=== PATIENT | female | born 1960 | race Caucasian/White ===

== ENCOUNTER 2018-09-04 20:23 | Emergency (ER) | payer BC ==
[~2018-09-04 20:23] MED LIST: ASC500 PO; ASP325 PO; CALCIUM PO; DEXL60CA6 PO; ESOM40CA42 PO; FISH OIL1 CAP PO; GLUC500T13 PO; IBU800 PO; LEVO112T43 PO; LIO25 PO; MULT-820 PO; NIA500 PO; OMEP-218 PO; S-AD200T5 PO; tylenol#3 PO
--- NOTE | 2018-09-04 20:27 | ER Report ---
History and Physical Time Seen By MD: 20:26 HPI/ROS CHIEF COMPLAINT: Left-sided chest pain, numbness radiating into the left face, left arm HISTORY OF PRESENT ILLNESS: Patient is a 58-year-old female with prior history of cardiac stent placement here with intermittent stuttering left-sided chest pain with numbness radiating to the left face, left arm which started approximately 7:00 this morning. Patient did take her aspirin at home. Patient does report a history of hypertension, family history of early heart attacks. Patient is hemodynamically stable, afebrile at time of evaluation. Denies shortness breath, diaphoresis, abdominal pain, fevers or chills. REVIEW OF SYSTEMS: Constitutional: No fever, no chills. Eyes: No discharge. ENT: No sore throat. Cardiovascular: + Left sided chest pain with numbness radiating to the left side of the face, left upper extremity, no palpitations. Respiratory: No cough, no shortness of breath. Gastrointestinal: No abdominal pain, no vomiting. Genitourinary: No hematuria. Musculoskeletal: No back pain. Skin: No rashes. Neurological: No headache. Allergies: Coded Allergies: No Known Drug Allergies (Verified , 09/04/18) Home Meds Active Scripts Tramadol Hcl (TRAMADOL HCL) 50 Mg Tablet, 50 MG PO Q6H PRN for PAIN, #12 TAB 0 Refills Prov:YADI MOSS DO 09/04/18 Reported Medications Estrogen,Con/M-Progest Acet (PREMPRO 0.45-1.5 MG TABLET) 1 Each Tablet, 1 EACH PO 09/04/18 Nortriptyline Hcl (NORTRIPTYLINE HCL) 25 Mg Cap, 25 MG PO HS, CAP 09/04/18 Valacyclovir Hcl (VALACYCLOVIR) 500 Mg Tablet, 500 MG PO 09/04/18 Losartan Potassium (LOSARTAN POTASSIUM) 50 Mg Tablet, 50 MG PO QDAY 09/04/18 Levothyroxine Sodium (LEVOTHYROXINE SODIUM) 100 Mcg Tablet, 125 MCG PO QDAY, TAB 09/04/18 Discontinued Reported Medications Dexlansoprazole (Dexilant) 60 Mg Colin., 60 MG PO DAILY, 0 Refills 05/24/11 Levothyroxine Sodium (Synthroid) 112 Mcg Tablet, 112 MCG PO QDAY, 0 Refills 05/24/11 Hx Smoking: Yes Hx Substance Use Disorder: No Hx Alcohol Use: No Constitutional Vital Sign - Last 24 Hours 09/04/18 09/04/18 09/04/18 09/04/18 20:23 20:26 20:26 20:30 Temp 98.3 Pulse ??? 85 Resp 18 B/P (MAP) 179/112 (134) 179/112 147/92 (110) Pulse Ox 92 O2 Delivery Room Air 09/04/18 09/04/18 09/04/18 09/04/18 20:33 20:40 20:43 20:50 Pulse 83 77 Resp 25 24 B/P (MAP) 147/94 (111) 141/92 (108) Pulse Ox 96 95 09/04/18 09/04/18 09/04/18 09/04/18 20:53 21:00 21:03 21:13 Pulse 74 72 76 Resp 14 19 17 B/P (MAP) 140/97 (111) Pulse Ox 93 94 93 09/04/18 09/04/18 09/04/18 09/04/18 21:15 21:23 21:30 21:33 Pulse 77 75 Resp 13 12 B/P (MAP) 147/91 (109) 138/93 (108) Pulse Ox 94 94 09/04/18 21:40 B/P (MAP) 146/107 (120) Physical Exam General Appearance: The patient is alert, has no immediate need for airway protection and no signs of toxicity. No acute distress Eyes: Pupils equal and round no pallor or injection. ENT, Mouth: Mucous membranes are moist. Respiratory: There are no retractions, lungs are clear to auscultation. Cardiovascular: Regular rate and rhythm. Gastrointestinal: Abdomen is soft and non tender, no masses, bowel sounds normal. Neurological: No focal neurological deficits Skin: Warm and dry, no rashes. Musculoskeletal: Neck is supple non tender. Extremities are nontender, nonswollen and have full range of motion. DIFFERENTIAL DIAGNOSIS: After history and physical exam differential diagnosis was considered for chest pain including but not limited to myocardial ischemia, pericarditis pulmonary embolus, chest wall pain, pleural inflammation and p ulmonary infectious causes. Medical Decision Making Data Points Result Diagram: 09/04/18203509/04/182035 Laboratory Hematology Test 09/04/18 20:36 Red Blood Count 4.53 M/uL (4.17-5.56) Mean Corpuscular Volume 93.1 fL (80.0-96.0) Mean Corpuscular Hemoglobin 31.4 pg (26.0-33.0) Mean Corpuscular Hemoglobin Concent 33.7 g/dL (32.0-36.0) Red Cell Distribution Width 14.1 % (11.5-14.5) Mean Platelet Volume 7.4 fL (7.2-11.1) Neutrophils (%) (Auto) 46.2 % (39.4-72.5) Lymphocytes (%) (Auto) 40.3 % (17.6-49.6) Monocytes (%) (Auto) 8.4 % (4.1-12.4) Eosinophils (%) (Auto) 2.7 % (0.4-6.7) Basophils (%) (Auto) 2.4 % (0.3-1.4) Nucleated RBC Relative Count (auto) 0.1 /100WBC Neutrophils # (Auto) 3.5 K/uL (2.0-7.4) Lymphocytes # (Auto) 3.1 K/uL (1.3-3.6) Monocytes # (Auto) 0.6 K/uL (0.3-1.0) Eosinophils # (Auto) 0.2 K/uL (0.0-0.5) Basophils # (Auto) 0.2 K/uL (0.0-0.1) Nucleated RBC Absolute Count (auto) 0.01 K/uL Prothrombin Time 12.9 seconds (12.0-14.4) Prothromb Time International Ratio 0.97 Activated Partial Thromboplast Time 29 seconds (23-35) D-Dimer Quantitative (PE/DVT) < 0.27 ug/ml (0-0.50) Sodium Level 136 mmol/L (137-145) Potassium Level 3.6 mmol/L (3.5-5.0) Chloride Level 103 mmol/L (98-107) Carbon Dioxide Level 25 mmol/L (22-31) Blood Urea Nitrogen 12 mg/dl (7-18) Creatinine 0.70 mg/dl (0.52-1.04) Glomerular Filtration Rate Calc > 60.0 Random Glucose 114 mg/dl (75-110) Calcium Level 9.7 mg/dl (8.4-10.2) Total Bilirubin 0.1 mg/dl (0.2-1.3) Aspartate Amino Transf (AST/SGOT) 40 U/L (0-35) Alanine Aminotransferase (ALT/SGPT) 29 U/L (0-56) Alkaline Phosphatase 62 U/L (0-126) Troponin I < 0.012 ng/ml B-Type Natriuretic Peptide 12 pg/ml (0-100) Total Protein 7.3 g/dl (6.3-8.2) Albumin 4.4 g/dl (3.5-5.0) Chemistry Test 09/04/18 20:36 White Blood Count 7.6 k/uL (4.5-11.0) Red Blood Count 4.53 M/uL (4.17-5.56) Hemoglobin 14.2 g/dL (12.0-16.0) Hematocrit 42.2 % (34.0-47.0) Mean Corpuscular Volume 93.1 fL (80.0-96.0) Mean Corpuscular Hemoglobin 31.4 pg (26.0-33.0) Mean Corpuscular Hemoglobin Concent 33.7 g/dL (32.0-36.0) Red Cell Distribution Width 14.1 % (11.5-14.5) Platelet Count 281 K/uL (150-450) Mean Platelet Volume 7.4 fL (7.2-11.1) Neutrophils (%) (Auto) 46.2 % (39.4-72.5) Lymphocytes (%) (Auto) 40.3 % (17.6-49.6) Monocytes (%) (Auto) 8.4 % (4.1-12.4) Eosinophils (%) (Auto) 2.7 % (0.4-6.7) Basophils (%) (Auto) 2.4 % (0.3-1.4) Nucleated RBC Relative Count (auto) 0.1 /100WBC Neutrophils # (Auto) 3.5 K/uL (2.0-7.4) Lymphocytes # (Auto) 3.1 K/uL (1.3-3.6) Monocytes # (Auto) 0.6 K/uL (0.3-1.0) Eosinophils # (Auto) 0.2 K/uL (0.0-0.5) Basophils # (Auto) 0.2 K/uL (0.0-0.1) Nucleated RBC Absolute Count (auto) 0.01 K/uL Prothrombin Time 12.9 seconds (12.0-14.4) Prothromb Time International Ratio 0.97 Activated Partial Thromboplast Time 29 seconds (23-35) D-Dimer Quantitative (PE/DVT) < 0.27 ug/ml (0-0.50) Glomerular Filtration Rate Calc > 60.0 Calcium Level 9.7 mg/dl (8.4-10.2) Total Bilirubin 0.1 mg/dl (0.2-1.3) Aspartate Amino Transf (AST/SGOT) 40 U/L (0-35) Alanine Aminotransferase (ALT/SGPT) 29 U/L (0-56) Alkaline Phosphatase 62 U/L (0-126) Troponin I < 0.012 ng/ml B-Type Natriuretic Peptide 12 pg/ml (0-100) Total Protein 7.3 g/dl (6.3-8.2) Albumin 4.4 g/dl (3.5-5.0) Coagulation Test 09/04/18 20:36 Prothrombin Time 12.9 seconds Prothromb Time International Ratio 0.97 Activated Partial Thromboplast Time 29 seconds D-Dimer Quantitative (PE/DVT) < 0.27 ug/ml EKG/Imaging EKG Interpretation PATIENT NAME: DELTA MACDONALD : [id number] MR: [id number] V: [id number] EXAM DATE: ORDERING PHYSICIAN: YADI MOSS TECHNOLOGIST: PANTIER Test Reason : CP Blood Pressure : / mmHG Vent. Rate : 076 BPM Atrial Rate : 076 BPM P-R Int : 150 ms QRS Dur : 098 ms QT Int : 404 ms P-R-T Axes : 065 -74 060 degrees QTc Int : 454 ms Normal sinus rhythm Left anterior fascicular block Abnormal ECG When compared with ECG of 20-APR-2013 15:54, No significant change was found Referred By: Confirmed By: Imaging PATIENT NAME: Delta Macdonald : 1960 MR: [id number] V: [id number] EXAM DATE: ORDERING PHYSICIAN: YADI MOSS TECHNOLOGIST: [place] [facility] [place] : 1960 Visit/Account:[id number] Date of Sevice: 09/04/2018 EXAMINATION: Portable chest radiograph single view at 8:52 PM HISTORY: Chest pain. COMPARISON: 04/22/2011. FINDINGS: A single portable AP view of the chest is obtained. Lines/tubes: None. Lungs/pleura: No focal consolidation or pleural effusion. Pulmonary vascularity is within normal limits. No evidence of pneumothorax. Heart: Normal heart size. Mediastinum: Stable mediastinal contours. Bony structures/body wall: Thoracolumbar scoliosis. IMPRESSION: No radiographic evidence of acute cardiopulmonary disease. ED Course/Re-evaluation ED Course Patient is a 58-year-old female here with complaints of left-sided chest pain, numbness radiating into the left face and left arm. Patient reports having prior history of heart attack at which time a stent was placed after she was transferred to [facility]. Patient reports that her symptoms started proximal 7:00 this morning and have been intermittent. Patient reports having symptoms for accumulative several hours. Patient is hemodynamically stable at time of evaluation, afebrile. Troponin, d-dimer were found to be negative. There is no leukocytosis, chest x-ray was clear. Patient was given Toradol, fentanyl for symptomatic treatment. Recommend close PCP follow-up. Return precautions provided. Patient was given a prescription for tramadol for breakthrough pain control. I discussed with the patient the possible need for an echo or a stress test if indicated. Patient will follow up with her primary care physician tomorrow in order to discuss the next steps. Patient was hemodynamically stable at time of discharge. Decision to Disposition Date: Sep 04, 2018 Decision to Disposition Time: 22:04 Depart Departure Latest Vital Signs Vital Signs Date Time Temp Pulse Resp B/P (MAP) Pulse Ox O2 Delivery O2 Flow Rate FiO2 09/04/18 21:40 146/107 (120) 09/04/18 21:33 75 12 94 09/04/18 20:26 98.3 Room Air Impression: Primary Impression: Chest pain Condition: Improved Disposition: HOME OR SELF-CARE Referrals: YUDELKA HER (PCP) New Scripts Tramadol Hcl (TRAMADOL HCL) 50 Mg Tablet 50 MG PO Q6H PRN for PAIN, #12 TAB 0 Refills Prov: YADI MOSS DO 09/04/18 Patient Instructions: Chest Pain (ED) Additional Instructions: Please follow up closely with your family doctor in order to discuss possible need for further testing such as stress test or echo. Today your troponin and d- dimer were found to be negative. Your chest x-ray showed no signs of pneumonia, fluid on the lungs or collapsed lung. Please drink plenty of water, return immediately if you develop chest pain recurrence, fevers, increasing shortness of breath. You may take Tylenol or naproxen as needed for primary pain control. You may take 1 tramadol every 6-8 hours as needed for breakthrough pain control. YADI MOSS DO Sep 04, 2018 20:27
[2018-09-04] MEDS ORDERED: NS(*) 0.9% 1000 ML BAG 1,000 ML IV ONE (20:38)
[2018-09-04] MEDS ORDERED: KETOROLAC 30 MG/ML VIAL IVP ONE (20:40)
[2018-09-04] MEDS ORDERED: LEVO-3 PO (20:44)
[2018-09-04] MEDS ORDERED: LOSA50TA80 PO (20:46)
[2018-09-04] MEDS ORDERED: NOR25 PO (20:46)
[2018-09-04] MEDS ORDERED: ESTR-26 PO (20:46)
[2018-09-04] MEDS ORDERED: VALA500T63 PO (20:46)
[2018-09-04 20:55] LABS: PLATELET COUNT, AUTOMATED 281 K/uL (150-450)
--- NOTE | 2018-09-04 21:16 | EKG ---
[place] [facility] [place] NAME: DELTA ALEXANDER : [id number] MR: [id number] V: [id number] EXAM DATE: ORDERING PHYSICIAN: YADI MOSS TECHNOLOGIST: EMERITA Sebastian Reason : CP Blood Pressure : / mmHG Vent. Rate : 076 BPM Atrial Rate : 076 BPM P-R Int : 150 ms QRS Dur : 098 ms QT Int : 404 ms P-R-T Axes : 065 -74 060 degrees QTc Int : 454 ms Sinus rhythm Possible left atrial enlargement Left axis Nonspecific interventricular conduction delay Abnormal ECG When compared with ECG of 20-APR-2013 15:54, No significant change was found Confirmed by ISAIAS STEWART ([id number]) on 09/05/2018 6:08:44 AM Referred By: Confirmed By:ISAIAS STEWART
[2018-09-04 21:29] LABS: INR 0.97
--- NOTE | 2018-09-04 21:32 | RADIOLOGY IMAGING REPORT ---
FACILITY: [facility] PATIENT NAME: Stephanie Macdonald : 1960 MR: [id number] V: [id number] EXAM DATE: ORDERING PHYSICIAN: YADI MOSS TECHNOLOGIST: Location: [facility] - [place], [place] Patient: Stephanie Macdonald : 1960 Visit/Account:[id number] Date of Sevice: 09/04/2018 EXAMINATION: Portable chest radiograph single view at 8:52 PM HISTORY: Chest pain. COMPARISON: 04/22/2011. FINDINGS: A single portable AP view of the chest is obtained. Lines/tubes: None. Lungs/pleura: No focal consolidation or pleural effusion. Pulmonary vascularity is within normal lyman its. No evidence of pneumothorax. Heart: Normal heart size. Mediastinum: Stable mediastinal contours. Bony structures/body wall: Thoracolumbar scoliosis. IMPRESSION: No radiographic evidence of acute cardiopulmonary disease. Report Dictated By: Remberto Savage MD at 09/04/2018 9:26 PM Report E-Signed By: Remberto Savage MD at 09/04/2018 9:29 PM [id number]
[2018-09-04 21:40] VITALS: BP 146/107
[2018-09-04] MEDS ORDERED: fentaNYL CITR 100 MCG/2 ML AMP IVP ONE (21:50)
[2018-09-04] MEDS ORDERED: TRAM-420 PO (22:06)
[2018-09-04] MEDS ORDERED: traMADol 50 MG TAB TH 2 TAB/BOTTLE PO ONE (22:10)
== END 2018-09-04 22:25 | disposition home or self-care (01) ==
LOC: ER 20:46
DX: R07.9 Chest pain, unspecified (principal)
CPT/HCPCS: 71045; 83880; 84484; 85025; 85379; 85610; 85730; 93005; 96361; 96374; 96375; 99284; C9399; J1885; J3010; J7030; 82040; 82247; 82310; 82374; 82435; 82565; 82947; 84075; 84132; 84155; 84295; 84450; 84460; 84520

== ENCOUNTER → 2018-10-10 | Outpatient (CLI) | payer BC ==
[~2018-10-10] MED LIST changes: +ESTR-26 PO; +LEVO-3 PO; +LOSA50TA80 PO; +NOR25 PO; +TRAM-420 PO; +VALA500T63 PO
== END ==
LOC: US 01:34
PROVIDERS: ATTEND Nurse Practitioner Family
DX: R07.9 Chest pain, unspecified (principal)
CPT/HCPCS: 93017; 93350